=== PATIENT | female | born 2000 | race Hispanic/Latino ===

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

== ENCOUNTER 2022-05-13 08:25 | Emergency (ER) | payer OTHER ==
[~2022-05-13] VITALS: Ht 149.9 cm; Wt 67.0 kg
[~2022-05-13 08:25] MED LIST changes: +DELTASONE20 MG PO; +EPIPEN 2-P0.3 MG/0.3 IJ; +PEPCID20 MG PO
[2022-05-13 08:33] VITALS: BP 111/80
[2022-05-13 09:00] VITALS: BP 112/74
[2022-05-13 09:31] VITALS: BP 126/88
[2022-05-13 09:40] VITALS: BP 126/88
== END 2022-05-13 09:49 | disposition home or self-care (01) | DRG 153 ==
LOC: ED 08:25
DX: J06.9 Acute upper respiratory infection, unspecified (principal); Z20.822 Contact with and (suspected) exposure to COVID-19